=== PATIENT | male | born 1960 | race Caucasian/White ===

== ENCOUNTER 2017-05-11 04:02 | Emergency (ER) | payer SELFPAY ==
[~2017-05-11] VITALS: Ht 182.9 cm; Wt 114.0 kg
[2017-05-11 04:10] VITALS: Ht 182.9 cm; Wt 114.0 kg
[2017-05-11] MEDS ORDERED: GUAIFENESIN/CODEINE 5ML CUP PO ONE (05:00)
[2017-05-11] MEDS ORDERED: HYDROCODONE/APAP (10/325) TAB PO ONE (05:00)
--- NOTE | 2017-05-11 05:31 | RADRPT ---
PROCEDURE: Chest. CLINICAL INDICATION: Chest pain. TECHNIQUE: Single frontal view of the chest was obtained. COMPARISON: None. FINDINGS: The cardiac silhouette is magnified. The aortic arch is calcified. There is mild bibasilar atelect asis. There is no focal consolidation, vascular congestion or pleural effusion. There is no pneumo thorax. IMPRESSION: Mild bibasilar atelectasis. Aortic atherosclerosis. .Laurent Diaz MD, MD Date Time Electronically viewed and signed by .Laurent Diaz MD, on 05/11/2017 05:31 .T/
[2017-05-11] MEDS ORDERED: htn meds (05:36)
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
[2017-05-11] MEDS ORDERED: HYDR-906 PO (05:41)
[2017-05-11] MEDS ORDERED: CYCL-319 PO (05:41)
[2017-05-11] MEDS ORDERED: CETI10CA PO (05:41)
[2017-05-11] MEDS ORDERED: GUAI473L22 PO (05:41)
[2017-05-11] MEDS ORDERED: IBUP-1542 PO (05:41)
[2017-05-11 05:51] VITALS: BP 171/99; PULSE 79; RESP 18; TEMP 98.3
== END 2017-05-11 05:59 | disposition home or self-care (01) ==
LOC: FTE 04:02
DX: J06.9 Acute upper respiratory infection, unspecified (principal); S20.219A Contusion of unspecified front wall of thorax, initial encounter; S19.9XXA Unspecified injury of neck, initial encounter; S29.9XXA Unspecified injury of thorax, initial encounter; I10 Essential (primary) hypertension; F17.210 Nicotine dependence, cigarettes, uncomplicated; V89.2XXA Person injured in unspecified motor-vehicle accident, traffic, initial encounter
CPT/HCPCS: 71010; 93005